=== PATIENT | female | born 1955 | race Caucasian/White ===

== ENCOUNTER 2020-05-06 10:11 | Emergency (ER) | payer MEDICARE, OTHER, SELFPAY ==
[2020-05-06] VITALS (36 sets, daily range): BP systolic 124–183; BP diastolic 65–128; PULSE 61–151; RESP 16–37; TEMP 36.7; O2SAT 87–100
--- NOTE | 2020-05-06 10:37 | DI.RAD.S_ITS ---
PROCEDURE: XR CHEST 1V INDICATIONS: chest pain TECHNIQUE: One view of the chest was acquired. COMPARISON: None. FINDINGS: Surgical changes and devices: None. Lungs and pleura: On this semiupright portable chest examination, no large pneumothorax or large pleural effusions are seen. No focal infiltrates are seen. Mediastinum: The cardiac contours are within normal limits. The aorta demonstrates calcification and tortuosity. Bones and chest wall: Age-appropriate bony degenerative changes are seen. No suspicious bony lesions. Overlying soft tissues appear unremarkable. IMPRESSION: No significant plain film abnormality is seen for age. Dictated by: Shubham Avalos M.D. on 05/06/2020 at 10:14 Approved by: Shubham Avalos M.D. on 05/06/2020 at 10:15
[2020-05-06 10:48] LABS: Add Manual Diff / Slide Review NO; Basophils Absolute Auto 100 /uL (0-100); Basophils Percent Auto 0.9 % (0-2); Eosinophils Absolute Auto 100 /uL (0-450); Eosinophils Percent Auto 1.4 % (2-4); Hematocrit 44.4 % (36-46); Hemoglobin 15.1 g/dL (12.0-16.0); Lymphocytes Absolute Auto 1800 /uL (1100-4500); Lymphocytes Percent Auto 20.2 % (25-40); Mean Corpuscular Volume 97.2 fL (80-100); Monocytes Absolute Auto 800 /uL (0-900); Monocytes Percent Auto 8.8 % (3-14); Neutrophils Absolute Auto 6000 /uL (1500-7000); Neutrophils Percent Auto 68.7 % (50-75); Platelet Count 270 X10^3/uL (150-400); Red Blood Cell Count 4.56 X10^6/uL (4.0-5.2); Red Cell Distribution Width 13.5 % (11.6-14.8); White Blood Cell Count 8.7 X10^3/uL (4.5-11.0)
[2020-05-06 10:52] LABS: PTT Partial Thromboplastin Tim 29 SECONDS (26.4-36.2)
[2020-05-06 10:53] LABS: Alanine Aminotransferase 19 IU/L (<35); Albumin 4.7 g/dL (3.5-5.0); Albumin Globulin Ratio 1.4 (1.0-2.8); Alkaline Phosphatase 104 U/L (38-126); Aspartate Aminotransferase 24 IU/L (14-36); BUN Creatinine Ratio 19.1 (6-22); Bilirubin Total 0.7 mg/dL (0.2-1.3); Blood Urea Nitrogen 13 mg/dL (7-17); Calcium 9.5 mg/dL (8.4-10.2); Carbon Dioxide 25 mmol/L (22-32); Chloride 106 mmol/L (98-107); Creatine Kinase 128 U/L (30-135); Estimated Glomerular Filt Rate > 60.0 mL/min (>60); Globulin 3.4 g/dL (1.7-4.1); Glucose 97 mg/dL (80-110); HEMOLYSIS 59 (0-50); Lipase 85 U/L (23-300); Sodium 137 mmol/L (137-145); Total Protein 8.1 g/dL (6.3-8.2)
[2020-05-06 10:54] LABS: Potassium 4.5 mmol/L (3.4-5.1)
[2020-05-06 11:04] LABS: Troponin I < 0.012 ng/mL (0.01-0.034)
[2020-05-06 11:08] LABS: CKMB % Relative Index 0.8 % (1.5-5.0); Creatine Kinase MB 0.96 ng/mL (<2.37)
--- NOTE | 2020-05-06 11:30 | ED.ABDPAIN ---
HPI - Abdominal Pain General Chief Complaint: Abdominal Pain Stated Complaint: CHEST PAINS/ LBP/ Time Seen by Provider: 05/06/20 11:21 Source: patient Mode of arrival: Ambulatory Limitations: no limitations History of Present Illness HPI narrative: This is a 65-year-old female who comes to the emergency department with complaint of right upper quadrant abdominal pain that is radiating to her back and sometimes to her left upper chest. Patient states that she has been having symptoms starting Friday after eating some fatty food. She states she has been nauseated but had any vomiting. Started on sat Friday, who does seem to make it worse, nothing else really seems to make it better. She has been restricting her intake and when she eats non-fatty foods seems to be better. She does note that she also belches a lot. She denies any diarrhea or constipation. She denies any issues with bowel movements, no urinary issues, no shortness of breath. Denies any cold cough or congestion or fevers. She did see her primary care physician on and was told to change from omeprazole to Nexium as well as an antacid which she has found minimally helpful. She states she has a history of reflux, denies any surgeries besides a tubal ligation, allergies to sulfa, half pack per day tobacco, no alcohol or illicit. She states she does drink coffee regularly. Related Data Home Medications Medication Instructions Recorded Confirmed omeprazole 20 mg PO DAILY 05/06/20 05/06/20 Previous Rx's Medication Instructions Recorded diltiazem HCl 60 mg PO BID #60 cap 05/06/20 nystatin 100,000 unit PO DAILY 14 Days #60 05/06/20 ml tramadol [Ultram] 50 mg PO Q6H PRN #10 tab 05/06/20 Allergies Allergy/AdvReac Type Severity Reaction Status Date / Time Sulfa (Sulfonamide Allergy Unknown Verified 05/06/20 10:34 Antibiotics) calcium carbonate AdvReac Unknown Verified 05/06/20 10:34 [From Job YATES] Review of Systems Review of Systems ROS Unobtainable: All systems reviewed & are unremarkable except as noted in HPI and below Patient History Surgical History (Updated 05/06/20 @ 15:14 by Yumiko Cruz DO) H/O tubal ligation (Acute) Social History Smoking Status: Current every day smoker Smoking Status: Current every day smoker alcohol intake frequency: 0-2 drinks per day Substance Use Type: does not use Exam Narrative Exam Narrative: GENERAL: Alert and oriented x three, well-nourished, well-appearing female in mild distress. HEENT: Head normocephalic, atraumatic, EOMI, pupils reactive, face symmetric, moist mucous membranes NECK: Supple, full range of motion CARDIOVASCULAR: Regular rate and rhythm without murmurs, rubs or gallops. No reproducible chest wall tenderness. RESPIRATORY: Breath sounds equal bilaterally, no wheezes rales or rhonchi. ABDOMEN: Soft, mild to moderate upper quadrant tenderness. Normoactive bowel sounds all 4 quadrants. No guarding or rebound, rigidity, no mass : No CVA tenderness EXTREMITIES: Normal range of motion, no clubbing or edema. Neurovascularly intact NEUROLOGICAL: Cranial nerves II through XII grossly intact. Moving all extremities SKIN: Warm, dry, no petechiae, no rashes or lesions. Initial Vital Signs Initial Vital Signs: Vital Signs Temperature 98.1 F 05/06/20 10:20 Pulse Rate 80 05/06/20 10:20 Respiratory Rate 18 05/06/20 10:20 Blood Pressure 137/75 05/06/20 10:20 Pulse Oximetry 99 05/06/20 10:20 Scores CHADS-VASc Congestive heart failure: no Hypertension: no Age 75 years or older: no Diabetes mellitus: no Stroke, TIA, or TE: no Vascular disease: no Age 65 to 74 years: yes Sex category (female): Female CHADS-VASc Score: 2 Wells' Criteria for PE Clinical signs and symptoms of DVT: No PE is #1 Dx or equally likely: No Heart rate > 100: Yes Immobilization at least 3 days or surg in previous 4 weeks: No History of PE or DVT: No Hemoptysis: No Malignancy w/Treatment within 6 months or palliative: No Wells' PE Score total: 1.5 Course Orders Ordered: ED Orders 05/06/20 10:30 Complete Blood Count AUTO DIFF Stat Comprehensive Metabolic Panel Stat Free T4, Direct Thyroxine Stat Lipase Stat Magnesium Stat Partial Thromboplastin Time Stat Prothrombin Time INR Stat Thyroid Stimulating Hormone Stat Troponin & CK Cardiac Panel Stat 05/06/20 10:37 XR chest 1V Stat EKG-12 Lead Stat 05/06/20 11:44 US abdomen complete Stat 05/06/20 12:04 EKG-12 Lead Stat 05/06/20 12:56 D Dimer Stat 05/06/20 14:02 CT angio chest PE protocol Stat Discontinued Medications Aspirin (Aspirin Chew) 324 mg PO NOW ONE Stop: 05/06/20 15:44 Last Admin: 05/06/20 15:55 Dose: 324 mg Documented by: IVÁN Diltiazem HCl (Cardizem) 20 mg IV NOW ONE Stop: 05/06/20 12:20 Last Admin: 05/06/20 12:23 Dose: 20 mg Documented by: JAKOB Sodium Chloride (Normal Saline 0.9%) 1,000 mls @ 150 mls/hr IV CONT YAIMA Last Infusion: 05/06/20 16:11 Dose: 0 mls/hr Documented by: Admin: 05/06/20 12:23 Dose: 150 mls/hr Documented by: JAKOB DILTIAZEM (Diltiazem 125 Mg/125 Ml-D5w) 125 mg in 125 mls @ 5 mls/hr IV TITRATE YAIMA; Protocol Last Admin: 05/06/20 14:55 Dose: Not Given Documented by: IVÁN Ketorolac Tromethamine (Toradol) 15 mg IV NOW ONE Stop: 05/06/20 11:45 Last Admin: 05/06/20 11:55 Dose: 15 mg Documented by: JAKOB Reevaluation(s) Reevaluation #1: Patient was noted to have an elevated heart rate evaluated in the room she is not having any additional pain at this time she states she can feel her heart rate fast and states this happens intermittently. Time: 11:50 Reevaluation #2: Patient appears to have a flipped back into a normal sinus rhythm. Her abdominal pain has also improved. D-dimer is pending but the rest of her labs show no acute changes. Discussed with patient with her intermittent symptoms of fast heartbeat she have increased risk of stroke which we discussed also discussed anticoagulation long-term possibly medications. She did see Dr. Callahan 6 or 7 years ago but they were never able to catch an event she ended up stopping the metoprolol that she was taking. Time: 13:21 Consultations Consultation #1: Spoke with Dr. Sloan, recommends based on patient's chads vascular score either a full dose aspirin or stronger anticoagulant, as well as possibly diltiazem 60 mg twice daily and he will contact the office to help make sure patient can follow-up with Dr. Callahan locally. Time: 15:22 Vital Signs Vital signs: Vital Signs - 8 hr 05/06/20 10:20 05/06/20 10:26 05/06/20 10:30 Temperature 98.1 F Pulse Rate 80 82 80 Respiratory Rate 18 18 20 Blood Pressure 137/75 137/75 Pulse Oximetry 99 99 98 05/06/20 11:00 05/06/20 11:10 05/06/20 11:20 Temperature Pulse Rate 79 78 75 Respiratory Rate 19 19 18 Blood Pressure 141/74 H Pulse Oximetry 98 99 99 05/06/20 11:30 05/06/20 11:40 05/06/20 11:56 Temperature Pulse Rate 75 78 151 H Respiratory Rate 18 20 23 Blood Pressure 145/75 H 156/118 H Pulse Oximetry 99 99 100 05/06/20 12:00 05/06/20 12:10 05/06/20 12:20 Temperature Pulse Rate 144 H 141 H 150 H Respiratory Rate 26 H 20 23 Blood Pressure 163/86 H Pulse Oximetry 99 98 99 05/06/20 12:22 05/06/20 12:23 05/06/20 12:30 Temperature Pulse Rate 151 H 148 H 122 H Respiratory Rate 27 H 18 Blood Pressure 183/128 H 183/128 H 140/74 Pulse Oximetry 100 100 05/06/20 12:44 05/06/20 12:45 05/06/20 12:50 Temperature Pulse Rate 107 H 127 H 112 H Respiratory Rate 19 19 Blood Pressure 136/77 124/91 H Pulse Oximetry 96 100 05/06/20 13:00 05/06/20 13:10 05/06/20 13:20 Temperature Pulse Rate 113 H 65 70 Respiratory Rate 16 18 22 Blood Pressure 135/88 140/68 142/72 H Pulse Oximetry 99 100 100 05/06/20 13:30 05/06/20 13:40 05/06/20 13:41 Temperature Pulse Rate 66 65 64 Respiratory Rate 19 18 18 Blood Pressure 148/70 H 142/65 H Pulse Oximetry 100 99 99 05/06/20 13:50 05/06/20 14:00 05/06/20 14:20 Temperature Pulse Rate 65 63 69 Respiratory Rate 18 18 37 H Blood Pressure 133/71 133/75 Pulse Oximetry 100 100 87 L 05/06/20 14:30 05/06/20 14:40 05/06/20 14:50 Temperature Pulse Rate 62 61 61 Respiratory Rate 17 16 17 Blood Pressure Pulse Oximetry 99 100 100 05/06/20 15:00 05/06/20 15:10 05/06/20 15:20 Temperature Pulse Rate 62 63 62 Respiratory Rate 17 17 17 Blood Pressure Pulse Oximetry 99 99 99 05/06/20 15:40 05/06/20 15:50 05/06/20 16:00 Temperature Pulse Rate 69 69 67 Respiratory Rate 18 21 20 Blood Pressure Pulse Oximetry 98 98 99 MDM - Abdominal Pain Lab Data Attestation: I reviewed the patient's lab results. Result diagrams: 05/06/20 10:30 05/06/20 10:30 Labs: Lab Results 05/06/20 05/06/20 05/06/20 Range/Units 10:30 10:30 10:30 WBC 8.7 (4.5-11.0) X10^3/uL RBC 4.56 (4.0-5.2) X10^6/uL Hgb 15.1 (12.0-16.0) g/dL Hct 44.4 (36-46) % MCV 97.2 (80-100) fL MCH 33.0 (26-34) PG MCHC 34.0 (30-36) % RDW 13.5 (11.6-14.8) % Plt Count 270 (150-400) X10^3/uL Neut % (Auto) 68.7 (50-75) % Lymph % (Auto) 20.2 L (25-40) % [place] % (Auto) 8.8 (3-14) % Eos % (Auto) 1.4 L (2-4) % Baso % (Auto) 0.9 (0-2) % Neut # (Auto) 6000 (7152-7915) /uL Lymph # (Auto) 1800 (1379-0485) /uL [place] # (Auto) 800 (0-900) /uL Eos # (Auto) 100 (0-450) /uL Baso # (Auto) 100 (0-100) /uL PT 11.0 (10.1-12.7) SECONDS INR 1.0 (0.9-1.3) APTT 29 (26.4-36.2) SECONDS D-Dimer (<230) ng/mL Sodium 137 (137-145) mmol/L Potassium 4.5 (3.4-5.1) mmol/L Chloride 106 (98-107) mmol/L Carbon Dioxide 25 (22-32) mmol/L BUN 13 (7-17) mg/dL Creatinine 0.68 (0.52-1.04) mg/dL Estimated GFR > 60.0 (>60) mL/min BUN/Creatinine Ratio 19.1 (6-22) Glucose 97 (80-110) mg/dL Calcium 9.5 (8.4-10.2) mg/dL Magnesium (1.6-2.3) mg/dL Total Bilirubin 0.7 (0.2-1.3) mg/dL AST 24 (14-36) IU/L ALT 19 (<35) IU/L Alkaline Phosphatase 104 (38-126) U/L Total Creatine Kinase 128 (30-135) U/L CK-MB (CK-2) 0.96 (<2.37) ng/mL CK-MB (CK-2) Rel Index 0.8 L (1.5-5.0) % Troponin I < 0.012 (0.01-0.034) ng/mL Total Protein 8.1 (6.3-8.2) g/dL Albumin 4.7 (3.5-5.0) g/dL Globulin 3.4 (1.7-4.1) g/dL Albumin/Globulin Ratio 1.4 (1.0-2.8) Lipase 85 (23-300) U/L TSH (0.47-4.68) uIU/mL Free T4 (0.78-2.19) ng/dL 05/06/20 05/06/20 05/06/20 Range/Units 10:30 10:30 12:56 WBC (4.5-11.0) X10^3/uL RBC (4.0-5.2) X10^6/uL Hgb (12.0-16.0) g/dL Hct (36-46) % MCV (80-100) fL MCH (26-34) PG MCHC (30-36) % RDW (11.6-14.8) % Plt Count (150-400) X10^3/uL Neut % (Auto) (50-75) % Lymph % (Auto) (25-40) % [place] % (Auto) (3-14) % Eos % (Auto) (2-4) % Baso % (Auto) (0-2) % Neut # (Auto) (9669-1009) /uL Lymph # (Auto) (6977-9135) /uL [place] # (Auto) (0-900) /uL Eos # (Auto) (0-450) /uL Baso # (Auto) (0-100) /uL PT (10.1-12.7) SECONDS INR (0.9-1.3) APTT (26.4-36.2) SECONDS D-Dimer > 5250 H (<230) ng/mL Sodium (137-145) mmol/L Potassium (3.4-5.1) mmol/L Chloride (98-107) mmol/L Carbon Dioxide (22-32) mmol/L BUN (7-17) mg/dL Creatinine (0.52-1.04) mg/dL Estimated GFR (>60) mL/min BUN/Creatinine Ratio (6-22) Glucose (80-110) mg/dL Calcium (8.4-10.2) mg/dL Magnesium 2.1 (1.6-2.3) mg/dL Total Bilirubin (0.2-1.3) mg/dL AST (14-36) IU/L ALT (<35) IU/L Alkaline Phosphatase (38-126) U/L Total Creatine Kinase (30-135) U/L CK-MB (CK-2) (<2.37) ng/mL CK-MB (CK-2) Rel Index (1.5-5.0) % Troponin I (0.01-0.034) ng/mL Total Protein (6.3-8.2) g/dL Albumin (3.5-5.0) g/dL Globulin (1.7-4.1) g/dL Albumin/Globulin Ratio (1.0-2.8) Lipase (23-300) U/L TSH 1.61 (0.47-4.68) uIU/mL Free T4 1.12 (0.78-2.19) ng/dL Point of care testing: Urine Dip Bedside Urine Glucose Negative Bedside Urine Bilirubin - Negative Bedside Urine Ketone - Negative Urine Specific [place] 1.010 Bedside Urine Occult Blood - Negative Bedside Urine pH 6.0 Bedside Urine Protein - Negative Bedside Urine Urobilinogen - Negative Bedside Urine Nitrite - Negative Bedside Urine Leukocytes - Negative Esterase Imaging Data US - abdomen: Radiologist's Impression: Chely Gaytan 65 F [address] [address] Ultrasound Report Signed Patient: Chely Gaytan JMR#: [id number] : 3Acct:[id number] Age/Sex: 65 / FDate of Service: 05/06/20 Loc: ED Accession Number: [id number] Procedure: US abdomen complete Ordering Provider: Yumiko Cruz D.O. PROCEDURE: US ABDOMEN COMPLETE INDICATIONS: RIGHT AND LEFT UPPER PAIN TECHNIQUE: Real-time scanning was performed of the abdominal and retroperitoneal organs, with image documentation. COMPARISON: [facility], US, RENAL OR RETROPERITONEAL LIMIT, 06/20/2015, 10:26. FINDINGS: Liver: Liver is normal in size. A complex 1.9 cm left liver cyst can be seen. Gallbladder: Multiple gallstones and sludge can be seen. The gallbladder wall is mildly thickened at 3.8 mm. No specific pericholecystic fluid is seen. The sonographic Ross sign is negative. Biliary ducts: Intrahepatic bile ducts are non-dilated. Extrahepatic bile duct caliber measures 10 mm mm. Normal is 6-7 mm or less in diameter, or 10 mm or less post-cholecystectomy. Pancreas: Visualized portions of the pancreas are sonographically normal. Pancreatic duct is seen and measures 1.8 mm, which is within normal limits. Spleen: Spleen is normal in size and homogeneous in echotexture. Kidneys: Kidneys are normal in size and echotexture. Right kidney measures 11.7 cm long; left kidney measures 10.1 cm long. No hydronephrosis or nephrolithiasis. No solid masses. Aorta: Visualized aorta is normal in caliber at less than 3 cm. Iliacs: Not seen. IVC: Intrahepatic inferior vena cava is patent. Miscellaneous: No free abdominal fluid. IMPRESSION: Gallstones and sludge can be seen, without additional sonographic signs of cholecystitis. Please correlate with physical examination findings, patient presentation, and laboratory values. Biliary dilatation is seen measuring 10 mm. The pancreatic duct is visualized, yet not frankly dilated at 2 mm. If clinically appropriate, an MRCP could be considered for further evaluation (assuming that there is no contraindication to MRI). A complex 1.9 cm left liver cyst can be seen. Dictated by: Shubham Avalos M.D. on 05/06/2020 at 12:03 Approved by: Shubham Avalos M.D. on 05/06/2020 at 12:06 Chest x-ray: Radiologist's Impression: [address] [address] XRay Report Signed Patient: Chely Gaytan R#: [id number] : [id number]:[id number] Age/Sex: 65 / FDate of Service: 05/06/20 Loc: ED Accession Number: [id number] Procedure: XR chest 1V Ordering Provider: Yumiko Cruz D.O. PROCEDURE: XR CHEST 1V INDICATIONS: chest pain TECHNIQUE: One view of the chest was acquired. COMPARISON: None. FINDINGS: Surgical changes and devices: None. Lungs and pleura: On this semiupright portable chest examination, no large pneumothorax or large pleural effusions are seen. No focal infiltrates are seen. Mediastinum: The cardiac contours are within normal limits. The aorta demonstrates calcification and tortuosity. Bones and chest wall: Age-appropriate bony degenerative changes are seen. No suspicious bony lesions. Overlying soft tissues appear unremarkable. IMPRESSION: No significant plain film abnormality is seen for age. Dictated by: Shubham Avalos M.D. on 05/06/2020 at 10:14 Approved by: Shubham Avalos M.D. on 05/06/2020 at 10:15 CT scan - chest: Radiologist's Impression: [address] [address] [address] Scan Report Signed Patient: Chely Gaytan JMR#: [id number] : 3Acct:[id number] Age/Sex: 65 / FDate of Service: 05/06/20 Loc: ED Accession Number: [id number] Procedure: CT angio chest PE protocol Ordering Provider: Yumiko Cruz D.O. PROCEDURE: CT ANGIO CHEST PE PROTOCOL INDICATIONS: chest pain, RUQ and left chest pain, intermittent atrial fib TECHNIQUE: After the administration of intravenous contrast, 2 mm thick sections acquired from the pulmonary apices to the posterior costophrenic angles. 3-dimensional maximum intensity projection (MIP) coronal and sagittal reformats were then acquired through the thorax. For radiation dose reduction, the following was used: automated exposure control, adjustment of mA and/or kV according to patient size. COMPARISON: [facility], US, US ABDOMEN COMPLETE, 05/06/2020, 12:26. [facility], CR, XR CHEST 1V, 05/06/2020, 10:53. FINDINGS: Image quality: Excellent. Pulmonary arteries: Pulmonary arteries are normal in size, and demonstrate no intraluminal filling defects to suggest central pulmonary embolism. Lungs and pleura: Mild dependent atelectasis is seen. No pleural effusions or pneumothorax. Central and peripheral airways are patent. Mediastinum: Heart size is normal, without pericardial effusion. No mediastinal or hilar adenopathy. Thoracic aorta is normal in caliber and enhancement. Esophagus is normal in caliber, without a significant hiatal hernia. Bones and chest wall: No suspicious bony lesions. Ribs and thoracic spine appear intact throughout. Mild dextroconvex scoliotic curvature is seen. Age-appropriate bony degenerative changes are seen. Accentuated thoracic kyphosis is seen. Thyroid gland demonstrates no significant abnormality. No axillary or supraclavicular adenopathy. Abdomen: There is a 2.6 x 2.5 cm left adrenal nodule seen. The internal density is approximately 0 Hounsfield units. There is also a right adrenal nodule seen that measures 1.6 by 1.2 cm, with an internal density of -8 Hounsfield units. Bilateral perinephric cobwebbing can be seen. Simple appearing liver cysts are seen. Biliary dilatation is partially seen. The visualized portions of the upper abdominal structures are otherwise unremarkable for imaging technique. IMPRESSION: Negative for pulmonary embolism. Biliary dilatation partially seen. Incidental note is made of: Bilateral lipid rich adrenal adenomas Simple appearing liver cysts Dictated by: Shubham Avalos M.D. on 05/06/2020 at 13:48 Approved by: Shubham Avalos M.D. on 05/06/2020 at 13:52 ECG Data Attestation: I personally reviewed and interpreted this ECG as follows: Interpretation: Sinus rhythm, rate of 79, P are 122, QRS 86 and QTC of 444. Patient has inverted T-wave in lead 3 with a Q-wave, no other ST changes appreciated EKG 2. Shows atrial flutter with a rapid rate of 143, QRS 82 and QTC of 493. Nonspecific ST change no elevation clearly appreciated. EKG 3 shows a sinus rhythm occasional PVC. Rate of 73 P are 132, QRS 86 and QTC of 453. Patient does not have any other new ST changes appreciated. MDM Narrative Medical decision making narrative: Patient has a history and physical exam suspicious for gallbladder, her ultrasound does show sludge as well as gallstones with no major lab abnormalities. Patient did have chest x-ray troponin included has she has some left upper chest discomfort. While in the department she elevated her heart rate into the 150 range in appear to have either SVT or atrial flutter on her tele and appears to be on her EKG as well. Patient states she has had fast heartbeat on off his seen cardiology but they never ?caught it? as she had been on metoprolol for some period of time but stopped it secondary to side effects. Patient received a dose of Cardizem the department and ultimately cardioverted to a normal rhythm. She did have an elevated D-dimer and a PE scan was ordered and was negative for PE but does show a liver cyst and bilateral adrenal nodules. Patient I discussed anticoagulation for stroke prevention. Case was also discussed with Cardiology, patient elects to take asa and given rx for diltiazem. Also referral for surgery for biliary colic with cholelithiasis and biliary sludge. Discharge Plan Departure Patient Disposition: Home Clinical Impression: Gallstones, Hepatic cyst, Atrial flutter Discharge Date/Time: 05/06/20 16:12 Instructions: Atrial Flutter, DI for Gallstones Activity Restrictions/Additional Instructions: Follow up with general surgery regarding your gallstones and biliary sludge, you may wish to discuss having your gallbladder removed in the rn long term care. You had an episode of atrial flutter in the department and it's recommended that you be in anti coagulation and potentially an antiarrhythmic medication, I would recommend that you talk with your physician and Cardiology about starting these medications to decrease your risk of stroke. Dr. Nathalia from cardiology recommends at minimum 324mg aspirin daily or a stronger anticoagulant and diltiazem 60mg BID. May continue home medication of omeprazole as prescribed. Take 1-2 tablets of pain medication as needed every 6 hours for pain. This medication can make you sleepy do not drive, perform hazardous activities or make any major decisions while taking it. Return to the ER for new or persistent symptoms, fevers, severe abdominal or back pain, severe chest pain, palpitations or fast heartbeats it does not resolve, lightheadedness, passing out, persistent vomiting or other new or concerning symptoms. Prescriptions: New tramadol [Ultram] 50 mg tablet 50 mg PO Q6H PRN (Reason: pain) Qty: 10 RF: 0 nystatin 100,000 unit/mL suspension 100,000 unit PO DAILY 14 Days Qty: 60 RF: 0 diltiazem HCl 60 mg capsule,extended release 12 hr 60 mg PO BID Qty: 60 RF: 0 No Action omeprazole 20 mg Tablet,Delayed Release (Dr/Ec) 20 mg PO DAILY RF: 0 Referrals: Geovanni Callahan MD [Physician] - Dayanna Recinos MD [Physician] -
--- NOTE | 2020-05-06 11:44 | DI.US.S_ITS ---
PROCEDURE: US ABDOMEN COMPLETE INDICATIONS: RIGHT AND LEFT UPPER PAIN TECHNIQUE: Real-time scanning was performed of the abdominal and retroperitoneal organs, with image documentation. COMPARISON: [facility], US, RENAL OR RETROPERITONEAL LIMIT, 06/20/2015, 10:26. FINDINGS: Liver: Liver is normal in size. A complex 1.9 cm left liver cyst can be seen. Gallbladder: Multiple gallstones and sludge can be seen. The gallbladder wall is mildly thickened at 3.8 mm. No specific pericholecystic fluid is seen. The sonographic Ross sign is negative. Biliary ducts: Intrahepatic bile ducts are non-dilated. Extrahepatic bile duct caliber measures 10 mm mm. Normal is 6-7 mm or less in diameter, or 10 mm or less post-cholecystectomy. Pancreas: Visualized portions of the pancreas are sonographically normal. Pancreatic duct is seen and measures 1.8 mm, which is within normal limits. Spleen: Spleen is normal in size and homogeneous in echotexture. Kidneys: Kidneys are normal in size and echotexture. Right kidney measures 11.7 cm long; left kidney measures 10.1 cm long. No hydronephrosis or nephrolithiasis. No solid masses. Aorta: Visualized aorta is normal in caliber at less than 3 cm. Iliacs: Not seen. IVC: Intrahepatic inferior vena cava is patent. Miscellaneous: No free abdominal fluid. IMPRESSION: Gallstones and sludge can be seen, without additional sonographic signs of cholecystitis. Please correlate with physical examination findings, patient presentation, and laboratory values. Biliary dilatation is seen measuring 10 mm. The pancreatic duct is visualized, yet not frankly dilated at 2 mm. If clinically appropriate, an MRCP could be considered for further evaluation (assuming that there is no contraindication to MRI). A complex 1.9 cm left liver cyst can be seen. Dictated by: Shubham Avalos M.D. on 05/06/2020 at 12:03 Approved by: Shubham Avalos M.D. on 05/06/2020 at 12:06
[2020-05-06] MEDS: KETOROLAC 60 MG/2 ML VIAL 15 MG IV (11:55)
--- NOTE | 2020-05-06 12:08 | PC.NURSE ---
@ 1145 pt walked to bathroom. Upon return pt found to be in afib, RVR w/ rate @ 144. Denies new chest pain/ shortness of breath. States 'this happens once or twice a week and lasts for a bit. Has never had it worked up. States pain in RUQ left chest is unrelated and has not changed w/ change in rythm. EKG completed. Attempted Vagal manuver which was unsuccessful in changing heart rate. Pt is pink/warm/dry. No acute distress.
[2020-05-06] MEDS: dilTIAZem 5 MG/ML SDV 20 MG IV (12:23)
[2020-05-06] MEDS: SODIUM CHLORIDE 0.9% 1,000 ML 150 ML IV (12:23)
[2020-05-06 12:38] LABS: Magnesium 2.1 mg/dL (1.6-2.3)
[2020-05-06 12:55] LABS: Free T4, Direct Thyroxine 1.12 ng/dL (0.78-2.19)
[2020-05-06 13:09] LABS: Thyroid Stimulating Hormone 1.61 uIU/mL (0.47-4.68)
[2020-05-06 13:57] LABS: D Dimer > 5250 ng/mL (<230)
--- NOTE | 2020-05-06 14:02 | DI.CT.S_ITS ---
PROCEDURE: CT ANGIO CHEST PE PROTOCOL INDICATIONS: chest pain, RUQ and left chest pain, intermittent atrial fib TECHNIQUE: After the administration of intravenous contrast, 2 mm thick sections acquired from the pulmonary apices to the posterior costophrenic angles. 3-dimensional maximum intensity projection (MIP) coronal and sagittal reformats were then acquired through the thorax. For radiation dose reduction, the following was used: automated exposure control, adjustment of mA and/or kV according to patient size. COMPARISON: [facility], US, US ABDOMEN COMPLETE, 05/06/2020, 12:26. [facility], CR, XR CHEST 1V, 05/06/2020, 10:53. FINDINGS: Image quality: Excellent. Pulmonary arteries: Pulmonary arteries are normal in size, and demonstrate no intraluminal filling defects to suggest central pulmonary embolism. Lungs and pleura: Mild dependent atelectasis is seen. No pleural effusions or pneumothorax. Central and peripheral airways are patent. Mediastinum: Heart size is normal, without pericardial effusion. No mediastinal or hilar adenopathy. Thoracic aorta is normal in caliber and enhancement. Esophagus is normal in caliber, without a significant hiatal hernia. Bones and chest wall: No suspicious bony lesions. Ribs and thoracic spine appear intact throughout. Mild dextroconvex scoliotic curvature is seen. Age-appropriate bony degenerative changes are seen. Accentuated thoracic kyphosis is seen. Thyroid gland demonstrates no significant abnormality. No axillary or supraclavicular adenopathy. Abdomen: There is a 2.6 x 2.5 cm left adrenal nodule seen. The internal density is approximately 0 Hounsfield units. There is also a right adrenal nodule seen that measures 1.6 by 1.2 cm, with an internal density of -8 Hounsfield units. Bilateral perinephric cobwebbing can be seen. Simple appearing liver cysts are seen. Biliary dilatation is partially seen. The visualized portions of the upper abdominal structures are otherwise unremarkable for imaging technique. IMPRESSION: Negative for pulmonary embolism. Biliary dilatation partially seen. Incidental note is made of: Bilateral lipid rich adrenal adenomas Simple appearing liver cysts Dictated by: Shubham Avalos M.D. on 05/06/2020 at 13:48 Approved by: Shubham Avalos M.D. on 05/06/2020 at 13:52
[2020-05-06] MEDS: ASPIRIN 81 MG CHEW TAB 324 MG PO (15:55)
== END 2020-05-06 16:12 | disposition home or self-care (01) ==
PROVIDERS: Emergency Provider Emergency Medicine
DX: K80.20 Calculus of gallbladder without cholecystitis without obstruction (principal); K76.89 Other specified diseases of liver; I48.92 Unspecified atrial flutter; R07.9 Chest pain, unspecified
CPT/HCPCS: 36415; 71045; 71275; 76700; 80053; 81003; 82550; 82553; 83690; 83735; 84439; 84443; 84484; 85025; 85379; 85610; 85730; 93005; 96361; 96374; 96375; 99284; 99285; J1885; Q9967

== ENCOUNTER → 2020-09-13 12:06 | Outpatient (CLI) | payer MEDICARE, OTHER, SELFPAY ==
--- NOTE | 2020-09-13 12:09 | DI.MRI.S_ITS ---
PROCEDURE: MR ABDOMEN WO CON INDICATIONS: dilated common bile duct TECHNIQUE: Coronal HASTE through the abdomen, axial 2-D FLASH in- and [id number], and breath-hold T2 FSE with fat saturation through the biliary system and pancreas. Oblique coronal and axial thin-slice HASTE, radial thick-slab HASTE centered on the extrahepatic bile ducts. Intravenous secretin: Not requested. COMPARISON: [facility], , US ABDOMEN COMPLETE, 05/06/2020, 12:26. FINDINGS: Image quality: Excellent. Pancreas and biliary system: The extrahepatic biliary tree is somewhat dilated, measuring 9 mm. No dilated intrahepatic ducts. There is no obvious pancreatic mass. Pancreas is normal in morphology, without adjacent soft tissue edema. Pancreatic duct is normal in caliber, without developmental anomalies. Gallbladder contains numerous stones. There is no gallbladder wall thickening or fluid around the gallbladder.. Other solid organs: Liver is normal in size. Multiple hepatic cysts. Spleen is normal in size. No adrenal nodules. Both kidneys are normal in size, without hydronephrosis. Nodes and vessels: No retroperitoneal or mesenteric adenopathy by size criteria. Aorta and inferior vena cava are normal in size. Bowel and peritoneum: Unenhanced bowel loops are normal in caliber. No free fluid. Lung bases: No basal pleural effusions. Heart size is normal. Bones and soft tissues: No ventral hernias. Bone marrow is of normal overall signal. IMPRESSION: 1. Cholelithiasis. 2. Mild dilatation of the extrahepatic biliary tree. No biliary ductal stone. No obstructing pancreatic mass. Dictated by: John Morejon M.D. on 09/13/2020 at 13:45 Approved by: John Morejon M.D. on 09/13/2020 at 13:47
== END ==
PROVIDERS: PCP Family Medicine; Referring Provider Surgery; Visit Provider Surgery
DX: K83.8 Other specified diseases of biliary tract (principal); K80.20 Calculus of gallbladder without cholecystitis without obstruction
CPT/HCPCS: 74181

== ENCOUNTER → 2020-09-21 09:05 | Outpatient (CLI) | payer MEDICARE, OTHER, SELFPAY ==
--- NOTE | 2020-09-21 | DI.ECHO.S_ITS ---
[facility]---------+ [facility] +---------+ : : [address] : : : : [id number] : : : : Phone: [phone]+ Echocardiogram Report + + :Name: HELEN JOSEPH Study Date: 09/21/2020 Height: 64 in : :[facility] : Weight: 168 lb : : Gender: Female BSA: 1.8 m2 : :: 1955 Age: 65 yrs BP: 130/85 mmHg: :Reason For Study: ATRIAL FIBRILLATION : :Ordering Physician: ZACHARY, : :JEFERSON Demarco P.A-C Performed By: Kenya Murcia : :Referring: ROBYN SHARMA : + + Interpretation Summary 1) Normal left ventricular thickness, size, wall motion, and systolic function (EF 55-60%). 2) Normal right ventricular size and function. 3) No significant valvular abnormalities. 4) Compared to the Echo done 05/19/2015, no significant change. Procedure: A two-dimensional transthoracic echocardiogram with color flow and Doppler was performed. The study quality was technically adequate. Comparison is made with the echocardiogram of 05/19/2015. The patient was in sinus bradycardia with heart rates between 48-52 bpm during the exam. Left Ventricle: The left ventricle is normal in size and wall thickness. The ejection fraction is estimated to be 55-60%. Left ventricular systolic function appears normal without focal wall motion abnormalities. Diastolic parameters suggest probable normal left ventricular diastolic function and normal filling pressures. Right Ventricle: The right ventricle is normal in size and function. Atria: The left atrial size is normal. Right atrial size is normal. There is no Doppler evidence for an interatrial shunt. Mitral Valve: The mitral valve is normal in structure and function. There is trace mitral regurgitation. Aortic Valve: The aortic valve is trileaflet. The aortic valve opens well. There is no aortic valve stenosis. No aortic regurgitation is present. Tricuspid Valve: The tricuspid valve is normal in structure and function. There is mild tricuspid regurgitation. The right ventricular systolic pressure is estimated to be at least 21 mmHg based on an estimated right atrial pressure of 3 mm Hg. Pulmonic Valve: The pulmonic valve leaflets are thin and pliable; valve motion is normal. There is no pulmonic valvular regurgitation. Great Vessels: The aortic root is normal size. The dimensions of the ascending aorta are normal. The IVC is of normal diameter and collapses greater than 50% with a sniff. This suggests a low right atrial pressure of 3 mm Hg. Pericardium/ Pleura There is no pericardial effusion. There is no pleural effusion. MMode/2D Measurements & Calculations LVIDd: 4.1 cm LVOT diam: 2.0 cm LVIDs: 2.7 cm Ao root diam: 3.1 cm FS: 34.5 % asc Aorta Diam: 3.0 cm EPSS: 0.41 cm Ao Arch Diam (Prox Trans): 2.6 cm IVSd: 0.87 cm LVPWd: 0.72 cm LV soto. diameter/BSA (cm/m^2): 2.3 LV sys. diameter/BSA (cm/m^2): 1.5 LA A2 area: 18.1 cm2 RA long axis: 5.3 cm LA A4 area: 16.8 cm2 RA area: 15.3 cm2 LA length (vol): 5.0 cm RA vol: 37.5 ml LA vol: 51.1 ml RA : 20.7 ml/m2 LA vol index: 28.1 ml/m2 IVC diam: 0.56 cm RVD1 (basal): 2.6 cm TAPSE: 2.3 cm Doppler Measurements & Calculations Ao V2 max: 114.3 cm/sec LVOT Max Javier: 95.7 cm/sec Ao V2 mean: 73.9 cm/sec LV V1 max P.7 mmHg Ao max P.2 mmHg LV V1 VTI: 21.1 cm Ao mean P.5 mmHg MARGARITA(I,D): 2.9 cm2 Ao V2 VTI: 22.8 cm MARGARITA(V,D): 2.6 cm2 sev ratio: 0.93 MARGARITA indexed to BSA (cm^2/m^2): 1.6 MV E max javier: 53.6 cm/sec TR max javier: 212.4 cm/sec MV A max javier: 41.5 cm/sec TR max P.0 mmHg MV E/A: 1.3 PA V2 max: 50.0 cm/sec Med Peak E' Javier: 6.5 cm/sec PA V2 mean: 32.5 cm/sec E/E' med: 8.2 PA mean P.50 mmHg Lat Peak E' Javier: 7.8 cm/sec PA pr(Accel): 34.5 mmHg E/E' lat: 6.9 E/e' average: 7.6 MV dec time: 0.19 sec SV(LVOT): 66.5 ml Reading Physician:03:05 PM
== END ==
PROVIDERS: PCP Family Medicine; Referring Provider Physician Assistant; Visit Provider Physician Assistant
DX: I07.1 Rheumatic tricuspid insufficiency (principal); I48.0 Paroxysmal atrial fibrillation
CPT/HCPCS: 93306

== ENCOUNTER → 2020-10-06 09:45 | Outpatient (CLI) | payer MEDICARE, OTHER, SELFPAY ==
[2020-10-06 11:59] LABS: COVID19 -Nasal RAPID Negative (Negative)
== END ==
PROVIDERS: PCP Family Medicine; Visit Provider Surgery
DX: Z20.822 Contact with and (suspected) exposure to COVID-19 (principal)
CPT/HCPCS: 87635; C9803

== ENCOUNTER 2020-10-09 06:30 | Day surgery (SDC) | payer MEDICARE, OTHER, SELFPAY ==
[2020-10-09] VITALS (8 sets, daily range): BP systolic 125–137; BP diastolic 52–70; PULSE 59–77; RESP 12–18; TEMP 36.1–36.7; O2SAT 96–100; BMI 28.3
--- NOTE | 2020-10-09 | PATH_ITS ---
[facility] Accession Number: [id number] . 01 Material submitted: . gallbladder - GALLBLADDER AND CONTENTS . 02 Diagnosis: Gallbladder and Contents, Cholecystectomy: Gallbladder with cholelithiasis. Choleliths are present within the gallbladder neck at gross examination. MRV 10/12/2020 1028 Local . 02 Electronically signed: . Elo Ulrich MD, Pathologist NPI- [id number] . 01 Gross description: . The specimen is received in formalin, labeled gallbladder and contents and consists of a 10.0 x 3.5 x 3.0 cm intact gallbladder with a 0.3 cm in diameter cystic duct. The serosa is russ-pink and smooth. Opening reveals clear viscous bile with multiple brown multifaceted choleliths ranging from 0.2 to 1.0 cm and measuring 7.0 x 3.0 x 2.0 cm in aggregate. Two choleliths are firmly lodged within the neck of the specimen. The mucosa is russ-pink and trabeculated and the wall thickness measures 0.1 cm. [employer] S[employer]er sections are submitted to include the en face cystic duct margin (blue) in cassette A1. (EA:[id number]) /MRV 10/11/2020 1157 Local . 02 Pathologist provided ICD-10: K80.20 . 02 CPT . 075335 Performed at: 01 [facility] [place] [address] [facility], [place], [place] [id number] MD Michael Benjamin MD Phone: [phone] Performed at: 02 [facility] [place] [address] [place], [place] [id number] MD Tena Estrada MD Phone: [phone]
[2020-10-09] MEDS: LACTATED RINGERS 1,000 ML 100 ML IV (07:34)
[2020-10-09] MEDS: [UNRECOGNIZED DRUG - OTHER] 5 EACH IV (07:36)
--- NOTE | 2020-10-09 07:42 | PM.PREOP ---
Pre-operative Note COVID-19 COVID-19 status: Negative Result date/Date tested (Pos, Neg/Pending): 10/06/20 Interval Note History & Physical reviewed/Exam performed by Physician: Yes Changes to H&P: No
[2020-10-09] MEDS: PIPERACILLIN-TAZO 3.375 GM/50 ML FROZ.PIGGY IV (07:49)
[2020-10-09] MEDS: BUPIVACAINE 0.25% W/ EPI (PF) 10 ML VIAL 30 ML INJ ×2 (08:14→09:13)
--- NOTE | 2020-10-09 09:34 | PM.OP.1 ---
Operative Date/Time/Diagnoses Date of procedure: 10/09/20 Time of procedure: 09:34 Pre-op diagnosis: Symptomatic cholelithiasis, chronic cholecystitis Post-op diagnosis: same Procedure & Clinicians Procedure: Laparoscopic cholecystectomy Indocyanine green cholangiography Same procedure as scheduled: Yes Indications: Symptomatic cholelithiasis, chronic cholecystitis Surgeon: Dayanna Recinos Click Yes if Unassisted: Yes Anesthesia Type: General Operative Notes Findings: Thickened gallbladder, adhesions to the gallbladder, neovascularization of the gallbladder, fibrotic shortened cystic duct, gallstone impacted in the junction of the gallbladder to the cystic duct/infundibulum Specimen(s): other (Gallbladder and contents) Estimated Blood Loss (mL): 15 Procedure in detail: The patient was brought into the operating room and placed supine on the OR table. Sequential compression devices were placed on both legs and turned on. Appropriate perioperative antibiotics were given prior to the start of surgery. General anesthesia was induced the patient was intubated. The abdomen was prepped and draped in sterile fashion. Surgical time-out was conducted. Local anesthetic was injected under the skin just superior to the umbilicus and a 5 mm vertical incision was made at this site. The umbilical stalk was grasped with a Gale and elevated. A Veress needle was passed through the fascia into proper position. The position was tested with a saline drop test which was appropriate for intra-abdominal Veress needle placement. The abdomen was then insufflated in the usual fashion. Once insufflated to 15 mm Hg the Veress needle was removed and a 5 mm optical trocar was placed under direct vision using a 5 mm 30 degree scope. Once the camera was inside the abdomen I took a look around. There was no injury from port placement. Two additional ports were placed in a similar fashion in the right upper quadrant and a 10 mm port was placed in the epigastrium. Through the 2 lateral ports the gallbladder was grasped and elevated and the infundibulum was retracted laterally to the patient's right. This exposed the gallbladder hilum and allowed for dissection of the cystic duct and cystic artery. There were some adhesions of omentum to the gallbladder fundus and the surface of the liver. These were taken down with hook cautery. At this point dissection of the gallbladder hilum was undertaken, and adhesions were taken down from the infundibulum and the surface of the cystic duct and artery. Indocyanine green cholangiography was used to identify the cystic duct and common bile duct. Both were easily seen, and the common bile duct was well away from the area of dissection. There was a gallstone impacted in the infundibulum, at the junction of the gallbladder and the cystic duct. It was milked up towards the gallbladder, but could not be entirely freed into the gallbladder. The cystic duct was somewhat shortened, but we were able to get an adequate length on it to place clips and divided safely. I confirmed with indocyanine green, that there was a single cystic duct and running next to a single cystic artery. Once the cystic duct and artery were completely dissected out I was able to see liver behind and between both structures without any other structures in the way, giving us the critical view of safety. At this point I doubly clipped both structures on the patient's side and put a single clip on the gallbladder side of both the cystic duct and artery. Both structures were then divided with laparoscopic [place]. Following this the gallbladder was gradually dissected free from the liver. There was quite a bit of hypervascularity of the scar tissue between the gallbladder and the liver. Several small vessels had to be controlled with cautery. The gallbladder was very thickened, and full of gallstones. There was significant evidence of chronic cholecystitis and chronic inflammation. Once the gallbladder was entirely freed, it was placed inside an Endo-Catch bag and removed through the epigastric port site. I did not have to enlarge the epigastric port site in order to get the gallbladder out. Once it was out and passed off to the back table I then took another look inside the abdomen. I suctioned clean any remaining blood or fluid on the lateral side of the liver and in the subhepatic space. There was no active bleeding or leaking of bile from the gallbladder fossa or from the clipped stumps of the cystic duct and artery. At this point an O vicryl on a Esau Maame suture passer was used to close the epigastric port site in the fascia. Insufflation was then removed from the abdomen. A 3 O Vicryl was used to close the subcutaneous layers, and 4 Monocryl in the skin. Additional local anesthetic was infiltrated into each port site. Each port site was sealed with Dermabond. This concluded the procedure. At this point the needle sponge and instrument counts were correct. The gallbladder was passed off the table for pathology. Patient was awakened from anesthesia and extubated. She was transferred to the postanesthesia care unit in stable condition. Complications: none Post-operative Condition: stable Disposition: PACU
[2020-10-09] MEDS: OXYCODONE/ACETAMINOPHEN 5/325 TABLET 1 TAB PO (10:02)
--- NOTE | 2020-10-09 12:46 | SUR.PHASEII ---
D/C instruction done by padmini Horne called, left when ready and left in stable condition. Abdomen remained soft, incisions intact, no nausea, no pain.
== END 2020-10-09 10:45 | disposition home or self-care (01) ==
PROVIDERS: PCP Family Medicine; Referring Provider Family Medicine; Visit Provider Surgery
PROC: 0FT44ZZ Resection of Gallbladder, Percutaneous Endoscopic Approach (ICD-10-PCS; CPT 47562; principal; 2020-10-09 07:45)
DX: K80.20 Calculus of gallbladder without cholecystitis without obstruction (principal); I48.11 Longstanding persistent atrial fibrillation; K21.9 Gastro-esophageal reflux disease without esophagitis; F17.210 Nicotine dependence, cigarettes, uncomplicated; K82.8 Other specified diseases of gallbladder
CPT/HCPCS: 47562; 82962; J1100; J2250; J2405; J2543; J2704; J3010

== ENCOUNTER 2021-12-11 08:36 | Emergency (ER) | payer MEDICARE, OTHER, SELFPAY ==
--- NOTE | 2021-12-11 08:49 | ED.GENADULT ---
HPI - General Adult General Chief complaint: Extremity Problem,Nontraumatic Stated complaint: twisted knee friday, swollen and painful Time Seen by Provider: 12/11/21 08:40 History of Present Illness HPI narrative: 66-year-old woman with history of hypertension and bilateral knee osteoarthritis was stepping out of her car on Friday, 48 hours ago and twisted the left knee. She is having increasing pain in the medial aspect is concerned that there is some swelling and she may have a DVT. She is unable to bear weight and is afraid to sit down because she is afraid she will be able to stand up. She did get a cane and has been using that to help. She has taken 3 baby aspirin the evening of the event and has used Aspercreme. Has not than any other pain modifying behaviors or medications. She describes no fever, cough, chills. There is no numbness down the leg. There is no posterior calf swelling. She has never had a similar injury. She is finding that this pain is exacerbating her chronic bilateral knee pain. Related Data Home Medications Medication Instructions Recorded Confirmed aspirin 81 mg tablet,delayed 81 mg PO DAILY 05/11/20 10/24/20 release (Adult Aspirin Regimen) lactobacillus combination no.4 3 3,000 mmu cells PO DAILY 10/09/20 10/24/20 billion cell capsule (Probiotic) metoprolol succinate 25 mg 25 mg PO DAILY 10/09/20 10/24/20 tablet,extended release 24 hr Previous Rx's Medication Instructions Recorded docusate sodium 100 mg capsule 100 mg PO BID #20 cap 10/09/20 oxycodone 5 mg tablet 5 mg PO Q6H PRN #20 tab 10/09/20 Allergies Allergy/AdvReac Type Severity Reaction Status Date / Time Sulfa (Sulfonamide Allergy Severe Rash Verified 12/11/21 08:56 Antibiotics) calcium carbonate AdvReac Unknown Verified 12/11/21 08:56 [From Job ] Review of Systems Review of Systems Narrative: Remainder of complete review of systems is otherwise unremarkable except for that included in the HPI. Patient History Medical History (Updated 12/11/21 @ 09:51 by Sophie Drew MD) Atrial fibrillation Surgical History (Updated 12/11/21 @ 09:12 by Sophie Drew MD) H/O tubal ligation S/P laparoscopic cholecystectomy Family History Mother Hypertension Heart disease Gallstones Diabetes mellitus Father Heart disease Gallstones Stroke Brother Gallstones Colon cancer Sister Gallstones Social History marital status: household members: spouse occupational status: previously employed Smoking Status: Current every day smoker alcohol intake: never substance use type: does not use Smoking Status: Current every day smoker alcohol intake frequency: 0-2 drinks per day Substance Use Type: does not use Exam Initial Vital Signs Initial Vital Signs: Vital Signs Temperature 97.8 F 12/11/21 08:56 Pulse Rate 81 12/11/21 08:56 Respiratory Rate 18 12/11/21 08:56 Blood Pressure 168/88 H 12/11/21 08:56 Pulse Oximetry 97 12/11/21 08:56 General: Alert appropriate in no acute distress Respiratory: Able to speak in full sentences, no obvious respiratory distress Skin: No obvious rashes, warm and dry Neurologic: Grossly intact no obvious asymmetries or abnormalities Psych: appropriate insight and affect, cooperative Extremities: Left knee with mild effusion. She is tender along the medial collateral ligament insertion distally. There is no lateral collateral pain and she does not have laxity to the anterior or posterior cruciate ligaments. Course Orders Ordered: ED Orders 12/11/21 09:06 XR knee LT 3V Stat Discontinued Medications Acetaminophen (Acetaminophen 325 Mg Tablet) 975 mg PO NOW ONE Stop: 12/11/21 09:07 Last Admin: 12/11/21 09:34 Dose: 975 mg Documented by: AUEBONY Vital Signs Vital signs: Vital Signs - 8 hr 12/11/21 08:56 Temperature 97.8 F Pulse Rate 81 Respiratory Rate 18 Blood Pressure 168/88 H Pulse Oximetry 97 Medical Decision Making Imaging Data XR knee: My Impression: No significant abnormalities and no significant arthritis is appreciated Radiologist's Impression: FINDINGS:? ? Bones:? No fractures or dislocations.? No suspicious bony lesions.? ? On the sunrise view, there is moderate to severe patellofemoral joint space narrowing seen. Osteophyte formation can be seen along the margins of the patella.? The femorotibial joint spaces appear well preserved. ? Soft tissues:? There is a mild joint effusion.? No suspicious soft tissue calcifications. ? ? ? IMPRESSION:? No acute plain film abnormality can be seen. ? Focal moderate to severe patellofemoral joint space narrowing. ? Mild joint effusion. ? If it would be helpful for clinical management decision making, please consider a dedicated, scheduled knee MRI for further evaluation (assuming that there is no contraindication).? ? ? Dictated by: Shubham Avalos M.D. on 12/11/2021 at 9:10? ?? MDM Narrative Medical decision making narrative: 66-year-old woman with left knee strain after stepping out of her car and twisting at 48 hours ago. She is used no [id number] pain medication and effective doses, no ice and feels that she would benefit from a walker to help with stability. She is provided a walker. Given 1g of Tylenol orally and an ice pack. Because of her history of significant osteoarthritis x-ray of the left knee is done. Discharge Plan Departure Patient Disposition: Home Clinical Impression: Knee strain Qualifiers: Encounter type: initial encounter Laterality: left Qualified Code(s): S86.912A - Strain of unspecified muscle(s) and tendon(s) at lower leg level, left leg, initial encounter Instructions: DI for Knee Sprain Activity Restrictions/Additional Instructions: Thank you for coming in today Typically with sprains and strains, the pain is worse in the 1st 48 hours. You appear to have pulled the inner ligament of your knee. There does not appear to be any significant damage otherwise. Your x-rays actually quite reassuring and does not show severe arthritis. On physical exam there is no suggestion of infection, bleeding into the knee joint itself or blood clot in the lower portion of your leg. I would recommend using a walker for stability, using 2 Tylenol every 6 hours for pain particularly if your concerned her unable to stand up after sitting. Ice to the area can help. Please follow-up with your primary care doctor. If you find that you are getting worse or develop any new symptoms, please feel free to return to the emergency department for further evaluation. Prescriptions: No Action aspirin [Adult Aspirin Regimen] 81 mg tablet,delayed release (DR/EC) 81 mg PO DAILY 0RF metoprolol succinate 25 mg Tablet Extended Release 24 Hr 25 mg PO DAILY 0RF Probiotic 3 billion cell Capsule 3,000 mmu cells PO DAILY 0RF oxycodone 5 mg tablet 5 mg PO Q6H PRN (Reason: post operative pain) Qty: 20 0RF docusate sodium 100 mg capsule 100 mg PO BID Qty: 20 0RF Referrals: Autumn Tamayo MD [Primary Care Provider] -
[2021-12-11 08:56] VITALS: BP 168/88; PULSE 81; RESP 18; TEMP 36.6; O2SAT 97
--- NOTE | 2021-12-11 09:06 | DI.RAD.S_ITS ---
PROCEDURE: XR KNEE LT 3V INDICATIONS: pain, swelling, trauma TECHNIQUE: 3 views of the knee were acquired. COMPARISON: None. FINDINGS: Bones: No fractures or dislocations. No suspicious bony lesions. On the sunrise view, there is moderate to severe patellofemoral joint space narrowing seen. Osteophyte formation can be seen along the margins of the patella. The femorotibial joint spaces appear well preserved. Soft tissues: There is a mild joint effusion. No suspicious soft tissue calcifications. IMPRESSION: No acute plain film abnormality can be seen. Focal moderate to severe patellofemoral joint space narrowing. Mild joint effusion. If it would be helpful for clinical management decision making, please consider a dedicated, scheduled knee MRI for further evaluation (assuming that there is no contraindication). Dictated by: Shubham Avalos M.D. on 12/11/2021 at 9:10 Approved by: Shubham Avalos M.D. on 12/11/2021 at 9:10
[2021-12-11] MEDS: ACETAMINOPHEN 325 MG TABLET 975 MG PO (09:34)
--- NOTE | 2021-12-11 09:38 | PC.NURSE ---
Ice pack applied to L knee and pt provided a walker per Dr. Drew's instruction
== END 2021-12-11 10:44 | disposition home or self-care (01) ==
PROVIDERS: Emergency Provider Emergency Medicine; PCP Family Medicine
DX: S86.912A Strain of unspecified muscle(s) and tendon(s) at lower leg level, left leg, initial encounter (principal); X50.1XXA Overexertion from prolonged static or awkward postures, initial encounter
CPT/HCPCS: 73562; 99283

== ENCOUNTER → 2022-08-28 10:43 | Outpatient (CLI) | payer MEDICARE, OTHER, SELFPAY ==
--- NOTE | 2022-08-28 | DI.US.S_ITS ---
PROCEDURE: US ABDOMEN LIMITED INDICATIONS: Right upper quadrant pain TECHNIQUE: Real-time focused scanning was performed of the abdomen, with image documentation. COMPARISON: [facility], MR, MR ABDOMEN WO CON, 09/13/2020, 12:21. [facility], US, US ABDOMEN COMPLETE, 05/06/2020, 12:26. FINDINGS: The liver demonstrates normal size. The liver echotexture is considered to be within normal limits. There is a simple cyst within the medial left lobe that measures up to 1 cm. There is a septated cyst within the lateral left lobe that measures 2.2 cm. Status post cholecystectomy. The common bile duct is prominent at 1.2 cm. No significant pancreatic abnormality is seen on these images. IMPRESSION: Status post cholecystectomy. There is prominence of the common bile duct, measuring 1.2 cm, which is slightly enlarged for a post cholecystectomy patient. If clinically appropriate, a repeat, follow-up MRCP could be considered for further evaluation (assuming that there is no contraindication to MRI). Dictated by: Shubham Avalos M.D. on 08/28/2022 at 10:50 Approved by: Shubham Avalos M.D. on 08/28/2022 at 10:57
== END ==
PROVIDERS: PCP Family Medicine; Referring Provider Registered Nurse; Visit Provider Registered Nurse
DX: K76.89 Other specified diseases of liver (principal); K83.8 Other specified diseases of biliary tract; R10.11 Right upper quadrant pain; Z90.49 Acquired absence of other specified parts of digestive tract
CPT/HCPCS: 76705

== ENCOUNTER → 2022-09-02 07:42 | Outpatient (CLI) | payer MEDICARE, OTHER, SELFPAY ==
--- NOTE | 2022-09-02 08:16 | DI.MRI.S_ITS ---
PROCEDURE: MR ABDOMEN WO/W CON INDICATIONS: RUQ PAIN TECHNIQUE: Coronal HASTE, axial 2D FLASH in- and [id number]; axial breath-hold T2 FSE. Dynamic axial VIBE during the administration of contrast; post-contrast coronal VIBE or 2D FLASH with fat saturation from the hepatic dome to the iliac crests. Optional diffusion weighted imaging and ADC may be performed. COMPARISON: [facility], MR, MR ABDOMEN WO CON, 09/13/2020, 12:21. [facility], US, US ABDOMEN LIMITED, 08/28/2022, 10:50. FINDINGS: Image quality: Good Lower chest: No pleural effusions. Lungs are not well evaluated on MRI. Solid organs: Multiple liver cysts are present, overall similar compared to 2020 MRI some of the cysts are septated. Status post cholecystectomy. No obstructing stone is identified. Mild biliary ductal dilation post cholecystectomy with the CBD measuring up to 10-11 mm. There is tapering at the region of the ampulla. No pathologic dilation of the pancreatic duct. As seen previously there are multiple pancreatic cystic lesions, index lesion at the pancreatic head is stable measuring about 10 x 8 mm on image 7/17. No splenomegaly. There is a left adrenal adenoma. This is stable. Please correlate with laboratory testing if necessary to determine functionality. A smaller right adrenal nodule is probably also adenoma. Mild perinephric stranding, possibly senescent, no hydronephrosis. Vessels and lymph nodes: Atherosclerotic calcifications. No abdominal aortic aneurysm. The main portal vein is patent. No pathologic adenopathy by size criteria. Bowel and peritoneum: No evidence of bowel obstruction. No pathologic ascites. Body wall: Unremarkable Bones: No acute or suspicious osseous abnormality. IMPRESSION: Patient is status post cholecystectomy with mild dilation of the biliary tree. No obstructing lesion identified in the biliary system. Please correlate with LFTs and consider ERCP if clinically necessary. Again seen are multiple pancreatic cystic lesions measuring up to 10 mm at the head. These can be followed with pancreas MRI in 1-2 years for a total of 10 years at clinical discretion. Other stable/nonacute findings as described above Dictated by: Zackary Espinoza M.D. on 09/02/2022 at 9:45 Approved by: Zackary Espinoza M.D. on 09/02/2022 at 9:55
== END ==
PROVIDERS: PCP Family Medicine; Referring Provider Internal Medicine; Visit Provider Internal Medicine
DX: K86.2 Cyst of pancreas (principal); K83.8 Other specified diseases of biliary tract; K76.89 Other specified diseases of liver; D35.02 Benign neoplasm of left adrenal gland; R10.11 Right upper quadrant pain; R14.0 Abdominal distension (gaseous); Z90.49 Acquired absence of other specified parts of digestive tract
CPT/HCPCS: 74183; A9579

== ENCOUNTER 2022-12-09 08:45 | Day surgery (SDC) | payer MEDICARE, OTHER, SELFPAY ==
--- NOTE | 2022-12-09 | PATH_ITS ---
[facility] Accession Number: [id number] No. of containers..05 Tissue . 01 Material submitted: . PART A: duodenum - DUODENUM NODULE PART B: gastrointestinal site - ANTRUM BIOPSY PART C: colon - CECUM SMALL POLYP PART D: colon - CECUM LARGE POLYP PART E: colon - DESCENDING COLON POLYP @ 42 CM . 01 Diagnosis: A. Duodenum, Nodule, Biopsy: Duodenal mucosa with patchy gastric surface foveolar metaplasia consistent with peptic duodenitis. Negative for intraepithelial lymphocytosis. Negative for dysplasia and malignancy. . B. Stomach, Antrum, Biopsy: Antral mucosa with mild chronic gastritis. Negative for Helicobacter by immunohistochemistry. Negative for intestinal metaplasia. Negative for dysplasia and malignancy. . C. Cecum, Small Polyp, Biopsy: Tubular adenoma. . D. Cecum, Large Polyp, Biopsy: Sessile serrated adenoma. . E. Descending Colon, Polyp at 42 cm, Biopsy: Tubular adenoma. [facility] 12/11/2022 1545 Local . 01 Electronically signed: . Tena Estrada MD, Pathologist NPI- [id number] . 01 Gross description: . Part A: DUODENUM NODULE: Received in formalin is 1 fragment(s) of russ, soft tissue measuring 0.3 x 0.3 x 0.3 cm submitted entirely in 1 cassette(s) Part B: ANTRUM BIOPSY: Received in formalin are 2 fragment(s) of russ, soft tissue measuring 0.2 x 0.1 x 0.1 cm to 0.3 x 0.3 x 0.2 cm submitted entirely in 1 cassette(s) Part C: CECUM SMALL POLYP: Received in formalin is 1 fragment(s) of russ, soft tissue measuring 0.4 x 0.2 x 0.2 cm submitted entirely in 1 cassette(s) Part D: CECUM LARGE POLYP: Received in formalin are multiple fragment(s) of russ, soft tissue measuring 0.1 x 0.1 x 0.1 cm to 1.0 x 0.8 x 0.6 cm submitted entirely in 1 cassette(s) Part E: DESCENDING COLON POLYP @ 42 CM: Received in formalin is 1 fragment(s) of russ, soft tissue measuring 0.7 x 0.6 x 0.6 cm submitted entirely in 1 cassette(s) /HUY 12/10/2022 2243 Local . 01 Microscopic: . B. An immunohistochemical stain was performed to evaluate for Helicobacter organisms and is negative. The control stain showed appropriate reactivity. . * This test was developed and its performance characteristics determined by [employer]. It has not been cleared or approved by the U.S. Food and Drug Administration. The FDA has determined that such clearance or approval is not necessary. This test is used for clinical purposes. It should not be regarded as investigational or for research. . 01 Pathologist provided ICD-10: D12.0, D12.4 . 01 CPT . 840407, 339542, 146536, 447338, 158742, L90244 Specimen Comment: A courtesy copy of this report has been sent to [phone] Performed at: 01 [facility] [address] [place] [address], [place], [place] [id number] MD Michael Benjamin MD Phone: [phone]
[2022-12-09 09:22] VITALS: BMI 27.8
--- NOTE | 2022-12-09 09:35 | P.HP_ITS ---
History of Present Illness History of Present Illness Date Patient Seen: 12/09/22 Time Patient Seen: 09:35 Chief complaint: [facility] [place] Narrative: History of globus. Improved with PPI. Family history of colon cancer. Here for diagnostic EGD and screening colonoscopy. She is noted some palpitations starting this morning with a bowel prep. She took her metoprolol at 4:00 a.m. this morning or thereabouts. She is been experiencing some of these symptoms once per week she indicates. No chest pain no shortness of breath. Heart rate is in the 120s to 150s. EKG shows a flutter with a variable block. [facility] Medical History Atrial fibrillation Surgical History H/O tubal ligation S/P laparoscopic cholecystectomy Family History Mother Hypertension Heart disease Gallstones Diabetes mellitus Father Heart disease Gallstones Stroke Brother Gallstones Colon cancer Sister Gallstones Social History marital status: household members: spouse occupational status: previously employed Smoking Status: Current every day smoker alcohol intake: current substance use type: does not use Meds Home Medications and Allergies Home Medications Medication Instructions Recorded Confirmed Type aspirin 81 mg tablet,delayed 81 mg PO DAILY 05/11/20 12/09/22 History release (Adult Aspirin Regimen) metoprolol succinate 25 mg 25 mg PO DAILY 10/09/20 12/09/22 History tablet,extended release 24 hr docusate sodium 100 mg capsule 100 mg PO PRN PRN Constipation 12/09/22 History omeprazole 20 mg capsule,delayed 20 mg PO DAILY 12/09/22 12/09/22 History release Allergies Allergy/AdvReac Type Severity Reaction Status Date / Time Sulfa (Sulfonamide Allergy Severe Rash Verified 12/09/22 09:18 Antibiotics) calcium carbonate AdvReac Unknown Verified 12/09/22 09:18 [From Akantonio ] Review of Systems Review of Systems ROS: Yes All systems reviewed with the patient and are negative except as otherwise documented Exam Const General: cooperative HENMT Head: normal to inspection Eyes General: appearance normal, both eyes and all related structures Neck Neck: normal visual inspection Chest Chest: normal inspection of the chest Resp Effort & Inspection: normal respiratory effort Cardio Rate: regular rate GI Inspection: normal to inspection Skin General: no rashes or lesions noted Neuro General: patient alert and patient awake Extrem General: normal to inspection and no pedal edema Psych Appearance: grossly normal Assessment & Plan Assessment & Plan narrative: 67-year-old female with globus and a family history of colon cancer. She is experiencing some subtle palpitations and a tachycardia demonstrated to be atrial flutter. I have deferred the case for the moment to her attending nurse trash collector. 5 mg dose of metoprolol has been administered in preop to see if this helps. If not the patient will need to be transferred over to the emergency room for further evaluation and stabilization. EGD and colonoscopy should commence once her heart rate is under acceptable control.
[2022-12-09] MEDS: METOPROLOL TARTRATE 5 MG/5 ML INJ IV (09:38)
[2022-12-09 09:45] VITALS: BP 118/66; PULSE 126; RESP 18; TEMP 36.1; O2SAT 98
--- NOTE | 2022-12-09 10:17 | PM.PREOP ---
Pre-operative Note Interval Note History & Physical reviewed/Exam performed by Physician: Yes Changes to H&P: Yes H&P completed within 30 days and has changed as indicated here:: A flutter was treated with 5 mg IV metoprolol and the patient responded quite nicely to this with a much more acceptable heart rate. ASA Class (for procedural sedation): III
--- NOTE | 2022-12-09 11:37 | PM.OP.EC ---
Operative Date/Time/Diagnoses Date of procedure: 12/09/22 Time of procedure: 11:38 Pre-op diagnosis: Globus and a family history of colon cancer in her brother Post-op diagnosis: same Procedure & Clinicians Study performed: EGD with biopsies and colonoscopy with hot snare polypectomy, submucosal saline injection, and Endoclip deployment Same procedure as scheduled: Yes Indications: Globus and a family history of colon cancer Surgeon: Shun Jordan Procedure Notes SCOAP/Timeout: Done Procedure in detail: After the risks and benefits were explained, written and verbal informed consent was obtained. The patient was brought into the procedure room and placed into the left lateral decubitus position. Please see anesthesia notes for sedation details. The scope was introduced into the mouth through the bite block and advanced under direct visualization to the 2nd portion of the duodenum. The scope was slowly withdrawn carefully examining the mucosa for any defects or lesions. Retroflexed views were accomplished in the stomach. The stomach was decompressed, the scope was then removed from the patient who tolerated the procedure well. The patient was then turned around. A digital rectal examination was accomplished. The scope was introduced into the rectum and advanced to the cecum as identified by the appendiceal orifice and ileocecal valve. The scope was slowly withdrawn to carefully examine the mucosa for any defects or lesions. Multiple direct views were made through the dentate line for exclusion of pathology. The colon was decompressed. The scope was removed from the patient who tolerated the procedure well. Pediatric colonoscope Bowel prep adequate This was a prolonged procedure with a complex cecal polyp. Procedure time was therefore prolonged (66 minutes for just the colonoscopy component alone) Scope withdrawal time: 52 minutes Sedation minutes: 75 Complications: none Impression: 1. Duodenum: There was a nodule between the 1st and 2nd portion of the duodenum perhaps in the 5-6 mm range which was biopsied for histopathologic analysis. Otherwise no overt gross pathology identified in the duodenum. There was a reasonably normal conner colored bile evident in D2. 2. Stomach: Minimal gastropathy. Biopsies from the antrum were acquired for exclusion of H pylori. Retroflexed views of the LES disclosed a small sliding hiatal hernia. 3. Esophagus: The squamocolumnar junction correlated with the top of the gastric folds. GEJ was at 40 cm from the incisors. No gross esophageal pathology identified throughout. 4. Colon: Challenging navigation. The patient had a somewhat tortuous colon. In the cecum there was a small polyp removed with cold snare. There was additionally a larger perhaps 2 cm sessile polyp probably representing a sessile serrated adenoma. We injected with saline for lift to approximately 4 cc. The polyp was then removed in piecemeal format by way of 2 large excisions. The defect was closed with 4 endo clips. The most challenging component was the clipping as these Endo clips did not easily rotate into optimal position and cause the procedure time to be prolonged. There was an additional 12 mm polyp sessile in the descending colon at about 42 cm from the anal verge. This was removed with hot snare. Grade 2 internal hemorrhoids were noted on direct views. Endoscopic diagnosis 1. Small sliding hiatal hernia 2. Mild gastropathy 3. Subtle duodenal nodule 4. Colon polyps 5. Hemorrhoids grade 2 Post-procedure Plan for aftercare: 1. Await histopathology. 2. Repeat colonoscopy 6 months. 3. Follow up Cardiology in light of preprocedural arrhythmia and EKG findings. 4. Continue omeprazole Disposition: PACU
[2022-12-09 11:40] VITALS: BP 104/77; PULSE 87; RESP 15; TEMP 35.9; O2SAT 99
[2022-12-09 11:45] VITALS: BP 94/67; PULSE 67; RESP 18; O2SAT 98
[2022-12-09 11:50] VITALS: BP 117/45; PULSE 94; RESP 20; O2SAT 96
[2022-12-09 11:55] VITALS: BP 89/71; PULSE 109; RESP 11; O2SAT 94
[2022-12-09 12:00] VITALS: BP 107/71; PULSE 105; RESP 15; TEMP 36; O2SAT 98
== END 2022-12-09 12:12 | disposition home or self-care (01) ==
PROVIDERS: PCP Family Medicine; Referring Provider Internal Medicine Gastroenterology; Visit Provider Internal Medicine Gastroenterology
PROC: 0DJ08ZZ Inspection of Upper Intestinal Tract, Via Natural or Artificial Opening Endoscopic (ICD-10-PCS; CPT 43235; principal; 2022-12-09 10:00)
PROC: 0DJD8ZZ Inspection of Lower Intestinal Tract, Via Natural or Artificial Opening Endoscopic (ICD-10-PCS; CPT 45378; 2022-12-09 10:00)
DX: Z12.11 Encounter for screening for malignant neoplasm of colon (principal); Z80.0 Family history of malignant neoplasm of digestive organs; F45.8 Other somatoform disorders; K31.9 Disease of stomach and duodenum, unspecified; K44.9 Diaphragmatic hernia without obstruction or gangrene; K29.50 Unspecified chronic gastritis without bleeding; K64.1 Second degree hemorrhoids; D12.0 Benign neoplasm of cecum; D12.4 Benign neoplasm of descending colon
CPT/HCPCS: 45381; 45385; 43239; 82962; 93005; 93010; J2704; J3010

== ENCOUNTER → 2024-02-07 11:07 | Outpatient (CLI) | payer MEDICARE, OTHER, SELFPAY | PROVIDERS: PCP Family Medicine; Visit Provider Physician Assistant | DX: R30.0 Dysuria (principal) | CPT/HCPCS: 87086 ==

== ENCOUNTER → 2024-12-30 09:40 | Outpatient (CLI) | payer MEDICARE, OTHER, SELFPAY ==
--- NOTE | 2024-12-30 09:42 | DI.CT.S_ITS ---
PROCEDURE: CT LUNG LOW DOSE SCREENING INDICATIONS: NICOTINE DEPENDANCE TECHNIQUE: Noncontrast 2.0-2.5 mm thick sections acquired from the pulmonary apices to the posterior costophrenic angles. 7 mm thick axial MIP, and 5 mm coronal and sagittal reformats were then acquired. For radiation dose reduction, the following was used: automated exposure control, adjustment of mA and/or kV according to patient size. COMPARISON: [facility], CT, CT LOW DOSE LUNG CA SCREENING, 09/28/2022, 12:36. FINDINGS: Image quality: Diagnostic. Lower Neck: No enlarged lymph nodes. Thyroid: No thyroid nodules which require sonographic follow up, per consensus guidelines. Axillae: No enlarged lymph nodes. Chest Wall: Unremarkable. Bones: Visualized osseous structures appear intact without acute fracture or focal destructive lesion. No acute compression fractures of the imaged spine. Lungs and Pleura: Minimal upper lobe predominant pulmonary emphysema. No pneumothorax or pleural effusions. Stable 5 mm subpleural nodule in the lateral right lower lobe (205/series 3). No new suspicious or enlarging pulmonary nodules. No septal thickening or nodularity . Visualized airways are clear. Heart: Heart size is normal. No pericardial effusion. Coronary atherosclerotic vascular calcifications are noted. Thoracic Vessels: The aorta and pulmonary arteries demonstrate normal size. Mediastinum and Vilma: No enlarged lymph nodes. Esophagus: No wall thickening. No hiatal hernia. Upper Abdomen: Status post cholecystectomy. Stable hepatic hypodensities likely representing cysts or hemangiomas. Stable 2.7 cm low-density nodule in the left adrenal gland measuring -7 Hounsfield units. This is again compatible with an adrenal adenoma. Visualized upper abdomen solid organs and bowel loops appear normal. IMPRESSION: No suspicious pulmonary nodules. LUNG-RADS 2; continued annual screening, if eligible. Other chronic findings as above. Clinically Significant Non-pulmonary Findings: Coronary atherosclerosis.. Dictated by: Maurizio Merlos M.D. on 12/30/2024 at 13:46 Approved by: Maurizio Merlos M.D. on 12/30/2024 at 13:52
== END ==
PROVIDERS: PCP Family Medicine; Referring Provider Registered Nurse; Visit Provider Registered Nurse
DX: Z12.2 Encounter for screening for malignant neoplasm of respiratory organs (principal); F17.210 Nicotine dependence, cigarettes, uncomplicated; E27.9 Disorder of adrenal gland, unspecified; R91.1 Solitary pulmonary nodule; I25.10 Atherosclerotic heart disease of native coronary artery without angina pectoris; Z90.49 Acquired absence of other specified parts of digestive tract
CPT/HCPCS: 71271

== ENCOUNTER → 2025-01-24 09:41 | Outpatient (CLI) | payer MEDICARE, OTHER, SELFPAY ==
--- NOTE | 2025-01-25 16:50 | DI.NM.S_ITS ---
DATE OF SERVICE: 01/24/2025 RESTING PHARMACOLOGICAL PERFUSION STUDY RADIOPHARMACEUTICAL: 25.2 millicurie technetium-99m Myoview IV was injected at rest. Gated study resting LV ejection fraction 70% without any significant wall motion abnormalities. Resting end-diastolic volume 66 mL. The patient came for stress test, however, the patient found to have AFib with RVR with heart rate 140. Hence, stress test was canceled. The patient was sent to the ER. This is a resting study only. MYOCARDIAL PERFUSION SCAN: On rest, there is small size mildly decreased perfusion of distal anterior wall. CONCLUSION: At rest, there is small size, mildly decreased perfusion of distal anterior wall. On gated study breast shadow seen. On gated study, preserved left ventricular function without any significant wall motion abnormalities. This could be due to breast tissue attenuation artifact, however, no stress supine of prone images. Stress test any true pathology. Chely Gaytan - MARCIE/krystal/MIRZA doc#: [id number]/job#: [id number] dd: 01/25/2025 16:36:00 dt: 01/25/2025 16:42:00 DICTATING /COPIES TO: Geovanni Callahan MD COPIES MNE: LUIS;
== END ==
PROVIDERS: PCP Family Medicine; Referring Provider Internal Medicine Cardiovascular Disease; Visit Provider Internal Medicine Cardiovascular Disease
DX: I48.0 Paroxysmal atrial fibrillation (principal)
CPT/HCPCS: 78451; A9502